=== PATIENT | female | born 1945 ===

== ENCOUNTER 2018-01-27 01:25 | Emergency (ER) | payer MEDICAID ==
--- NOTE | 2018-01-27 01:34 | EDPHY ---
H & P Time Seen by Provider: 01/27/18 01:28
[2018-01-27] MEDS ORDERED: IPRATROPIUM/ALBUTEROL 3 ML DEYVIAL IH ONE (02:00)
--- NOTE | 2018-01-27 02:01 | EDPHY ---
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 Approximately 1 week ago she started having irritation to the right eye only. Her granddaughter noted that and thought it was simply a"cold in the eye"as it has been going around, but not pink eyes per se However as of 2 days ago the I started becoming stuck shot. This bothers her somewhat in even on the tuesday, January 25 when she had her last dialysis run as it bothered her to open her eyes when she was laying back. She noted that there has been no known exposure per se to anyone with a high discharge Furthermore with respect to her dialysis she goes Tuesday, is due at 10:00 a.m. This morning, and has been compliant going to all her visits as well as maintaining her baseline weight of 53 kilos. While she does feel somewhat short of breath tonight, she feels no more short of breath than usual. What bothers her tonight and what kept her awake is that when she would go to lay down the cough that she has had for the last week would be worse and she would not be able to fall asleep. Her granddaughter gave her Tessalon Perles just 1 hr prior to arrival She has had no fevers or chills or sweats. No one else has been sick. REVIEW OF SYSTEMS: Constitutional: No fever, no chills. Eyes: No discharge. ENT: No sore throat. Cardiovascular: No chest pain, no palpitations. Respiratory: No cough, shortness of breath, or wheezing. Gastrointestinal: No nausea vomiting or diarrhea. No abdominal pain. Genitourinary: No hematuria or frequency. Musculoskeletal: No back pain. Skin: No rashes. Neurological: No headache. 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 - Family History Significant Family History: COPD - Social History Smoking Status: Never smoked Alcohol Use: None Drug Use: None - Physical Exam Exam: General Appearance: Alert, no distress. Temperature is 37.5 orally on my exam. Normal phonation. No respiratory distress. She is stops to cough periodically, which almost sounds like a grunt. Eyes: Pupils equal and round no pallor. There is moderate injection of the right eye with a clear cornea. There are no preauricular nodes No icterus Fluorescein stain neg for uptake. ENT, Mouth: Mucous membranes slightly dry Pharynx without erythema or exudate. TM Clear. Neck: No adenopathy. Supple. No JVD on the left but there is notable on the right, up to the angle of the mandible. Trachea in midline. Respiratory: There are no retractions, lungs sounds are distant. With forced exhalation I can barely hear them as well however they do not precipitate a wheeze per se Chest wall: Nontender to palpation. No crepitus. Cardiovascular: Regular rate and rhythm, grade 2/6 systolic ejection murmur heard best at the upper left sternal border Abdomen: Soft and nontender, no masses, bowel sounds normal. Femoral pulses equal. Neurological: Ox3. No motor weakness. Sensation intact. Gait nl. Skin: Warm and dry, no rashes. Musculoskeletal: No joint swelling. Extremities: No edema. Homans sign negative. No cords. Dialysis shunt is on the left forearm and palpable thrill noted Psychiatric: Normal affect. Patient is oriented X 3. There is no agitation Constitutional: Initial Vital Signs Temperature (C) 37.1 C 01/27/18 01:44 Heart Rate 76 01/27/18 01:44 Respiratory Rate 22 H 01/27/18 01:44 Blood Pressure 140/54 H 01/27/18 01:44 O2 Sat (%) 95 01/27/18 01:44 O2 Delivery Mode Room Air O2 (L/minute) 2 Allergies/Adverse Reactions: Penicillins Allergy (Verified 01/27/18 01:41) Home Medications: Medication Instructions Recorded Albuterol [Proventil Neb] 2.5 mg IH Q6 PRN #20 deyvial 01/27/18 Doxycycline Monohydrate [Avidoxy] 100 mg PO BID #20 tablet 01/27/18 Labetalol HCl [Trandate 100 mg (*)] 01/27/18 Lisinopril 01/27/18 Minoxidil 01/27/18 Plavix 01/27/18 Ranitidine HCl 01/27/18 clonIDINE [Catapres-Tts] 01/27/18 Medical Decision Making - Diagnostics EKG Interpretation: EKG: Interpreted by me contemporaneously. Rhythm: [Normal sinus rhythm.] Heart rate [ ] QTc [ ] QRS: [normal] STT segment: Lateral ST-T changes in V4 through V6. T Waves: Lateral ST-T changes Q waves [none] Summary: Nonspecific changes laterally Imaging Results: Chest x-ray: Two view chest. Interpreted by me as possible early pneumonia RUL. Films viewed by me on the PACS system. Imaging: Discussed imaging studies w/ call taker Radiologist, I viewed and interpreted images myself ED Course/Re-evaluation: Given RT of Duoneb with improved cough and sense of less SOB as she would no loonger have a sense of running out of air as she coughed. CXR: no pneumonia. Large PA with some interstitial edema. Borderline heart size. Labs reviewed as floolows: Troponin neg lactic acid normal Electrolytes nl Alk phos elevated at 163 CO2 elevated, likely from COPD BUN/Creat reflect her ESRD = 32/4.4 WBC nl H&H c/w ESRD. Mag = 2.3 BNP 26.6K, as seen in dialysis. EKG: NSSTT changes V3 - V6. No old EKG to review, but an entry in the ED record of ([id number] inthe [facility] site) notes flipped T's laterally as well. Interpreted by me contemporaneously I reviewed the database, up-to-date, and noted that there is no Doxycycline dosing changes in dialysis patients. There appears to be no pneumonia. The temperature of 37.5 is somewhat bothersome thus the doxycycline will cover any early pneumonia and help her conjunctivitis. 0755: After pt's discharge radiologist called noting several pulmonary nodules that needs clinical correlation with old studies, she was admitted to [facility] twice in the past year. Pt to be notified. DDX includes early pneumonia. Note, she was started on Doxycycline.. Differential Diagnosis: Diagnostic considerations include, but are not limited to, the following: URI, sinusitis, pharyngitis, otitis media, pneumonia, allergy, influenza. Diagnostic considerations include, but are not limited to, the following: Corneal laceration, corneal abrasion, Corneal FB, conjunctival foreign body, allergic conjunctivitis, bacterial conjunctivitis, viral conjunctivitis, conjunctivitis glaucoma - Data Points Laboratory Results: Laboratory Results 01/27/18 02:11 01/27/18 01/27/18 01/27/18 02:22 02:21 02:11 WBC RBC Hgb Hct MCV MCH MCHC RDW Plt Count MPV Neut % (Auto) Lymph % (Auto) [place] % (Auto) Eos % (Auto) Baso % (Auto) Nucleat RBC Rel Count Absolute Neuts (auto) Absolute Lymphs (auto) Absolute Monos (auto) Absolute Eos (auto) Absolute Basos (auto) Absolute Nucleated RBC Immature Gran % Immature Gran # Platelet Estimate Target Cells Oval Macrocytes Schistocytes POC Lactic Acid Franko 0.9 mmol/L mmol/L (0.7-2.1) Magnesium 2.3 mg/dL mg/dL (1.6-2.3) POC Troponin I 0.02 ng/mL ng/mL (0.00-0.08) NT-Pro-B Natriuret Pep 82733 pg/mL H pg/mL (0-125) 01/27/18 02:11 WBC 6.11 10^3/uL 10^3/uL (3.80-9.50) RBC 2.90 10^6/uL L 10^6/uL (4.18-5.33) Hgb 9.0 g/dL L g/dL (12.6-16.3) Hct 28.4 % L % (38.0-47.0) MCV 97.9 fL fL (81.5-99.8) MCH 31.0 pg pg (27.9-34.1) MCHC 31.7 g/dL L g/dL (32.4-36.7) RDW 20.6 % H % (11.5-15.2) Plt Count 166 10^3/uL 10^3/uL (150-400) MPV 12.0 fL H fL (8.7-11.7) Neut % (Auto) 63.4 % % (39.3-74.2) Lymph % (Auto) 18.3 % % (15.0-45.0) [place] % (Auto) 8.7 % % (4.5-13.0) Eos % (Auto) 8.3 % H % (0.6-7.6) Baso % (Auto) 1.0 % % (0.3-1.7) Nucleat RBC Rel Count 0.0 % % (0.0-0.2) Absolute Neuts (auto) 3.87 10^3/uL 10^3/uL (1.70-6.50) Absolute Lymphs (auto) 1.12 10^3/uL 10^3/uL (1.00-3.00) Absolute Monos (auto) 0.53 10^3/uL 10^3/uL (0.30-0.80) Absolute Eos (auto) 0.51 10^3/uL H 10^3/uL (0.03-0.40) Absolute Basos (auto) 0.06 10^3/uL 10^3/uL (0.02-0.10) Absolute Nucleated RBC 0.00 10^3/uL 10^3/uL (0-0.01) Immature Gran % 0.3 % % (0.0-1.1) Immature Gran # 0.02 10^3/uL 10^3/uL (0.00-0.10) Platelet Estimate ADEQUATE (ADEQ) Target Cells 1+ H Oval Macrocytes 1+ H Schistocytes 1+ H POC Lactic Acid Franko Magnesium POC Troponin I NT-Pro-B Natriuret Pep Medications Given: Discontinued Medications Albuterol Sulfate (Proventil Inh Prepack) 1 mdi TAKEHOME EDNOW ONE Stop: 01/27/18 04:04 Last Admin: 01/27/18 04:13 Dose: 1 mdi Albuterol/Ipratropium (Duoneb) 3 ml IH EDNOW ONE Stop: 01/27/18 02:01 Last Admin: 01/27/18 02:08 Dose: 3 ml Doxycycline Hyclate (Vibramycin 100 Mg Prepack#2) 1 btl TAKEHOME EDNOW ONE Stop: 01/27/18 03:59 Last Admin: 01/27/18 04:13 Dose: 1 btl Point of Care Test Results: Chemistry 01/27/18 02:21 POC Troponin I 0.02 ng/mL ng/mL (0.00-0.08) Blood Gas/Lactic Acid-Venous 01/27/18 02:22 POC Lactic Acid Franko 0.9 mmol/L mmol/L (0.7-2.1) Departure - Departure Disposition: Home, Routine, Self-Care Clinical Impression: Conjunctivitis Qualifiers: Conjunctivitis type: acute Acute conjunctivitis type: unspecified Laterality: right Qualified Code(s): H10.31 - Unspecified acute conjunctivitis, right eye URI (upper respiratory infection) Qualifiers: URI type: unspecified viral URI Qualified Code(s): J06.9 - Acute upper respiratory infection, unspecified Condition: Good Instructions: Upper Respiratory Infection (ED), Conjunctivitis (ED) Additional Instructions: Continue your usual medications You may use the TESSALON for the cough. Add the inhaler, as it will improve your cough Add PROVENTIL, take it for shortness of breath or COUGH. Add DOXYCYLINE, the antibiotic - no need to change the dose due to Dialysis, it will remain twice a day. Recheck with your regular doctor in 3 days Return if fever or feeling worse. Referrals: Patient,NotPresent [Primary Care Provider] - As per Instructions Prescriptions: Albuterol [Proventil Neb] 2.5 mg IH Q6 PRN #20 deyvial PRN Reason: labored breathing or shortness Doxycycline Monohydrate [Avidoxy] 100 mg PO BID #20 tablet
[2018-01-27 03:27] LABS: PLATELET COUNT 166 10^3/uL (150-400)
[2018-01-27] MEDS ORDERED: DOXYCYCLINE 100 MG PREPACK#2 BTL TAKEHOME ONE (03:58)
[2018-01-27 04:00] VITALS: BP 148/66
[2018-01-27] MEDS ORDERED: ALBUTEROL INH PREPACK MDI TAKEHOME ONE ×2 (04:02→04:03)
--- NOTE | 2018-01-27 18:05 | ASMTCMCOM ---
CM Note CM Note Notes: Received a call from [facility] ([phone]) STACY Coley re: trying to obtain pt contact information so patient can be notified of recent ED test results. Able to confirm that patient receives dialysis at [facility] ([phone]). This CM contacted the clinic and staff provided pt's listed phone # as and also pt's daughter, Adenike ([phone]) and daughter Manisha ([phone]). Pt lives in [place]. Pt used to be seen by Joy Carey but pt's last visit was in 2012. This information was communicated to [facility] STACY Coley. CM available for further assistance if needed. Date Signed: 01/27/2018 06:05 PM Electronically Signed By:Hailee Ortega RN
--- NOTE | 2018-01-29 19:22 | CPEKG ---
Heart Rate: 73 RR Interval: 822 P-R Interval: 180 QRSD Interval: 96 QT Interval: 408 QTC Interval: 450 P [place]: 46 QRS [place]: 65 T Wave [place]: 186 EKG Severity - ABNORMAL ECG - EKG Impression: SINUS RHYTHM EKG Impression: ABNORMAL T, CONSIDER ISCHEMIA, LATERAL LEADS Electronically Signed By: Steve Mckee 01-Feb-2018 20:36:45
== END 2018-01-27 04:14 | disposition home or self-care (01) ==
LOC: CED 01:25
DX: J06.9 Acute upper respiratory infection, unspecified (principal); H10.31 Unspecified acute conjunctivitis, right eye; E11.9 Type 2 diabetes mellitus without complications; I12.0 Hypertensive chronic kidney disease with stage 5 chronic kidney disease or end stage renal disease; N18.6 End stage renal disease; Z95.5 Presence of coronary angioplasty implant and graft
CPT/HCPCS: 71046-PO; 80053-PO; 83605-PO; 84484-PO